=== PATIENT | female | born 1945 | race Caucasian/White ===

== ENCOUNTER 2019-04-11 12:48 | Inpatient (IN) | payer OTHER ==
[2019-04-11] MEDS: PIPER-TAZO 3.375 GM IV (PMX) 100 ML IVPB (14:11)
[2019-04-11] MEDS: VANCOMYCIN 1 GM (PMX) 250 ML IVPB (14:45)
[2019-04-11] MEDS ORDERED: ONDANSETRON 4 MG INJ IV ×2 (15:30→16:00)
[2019-04-11] MEDS ORDERED: ACETAMINOPHEN 325 MG TAB PO ×2 (15:30→16:00)
[2019-04-11] MEDS ORDERED: ACETAMINOPHEN 650 MG SUPP PR (16:00)
[2019-04-11] MEDS ORDERED: NACL 0.9% 3 ML SYG IV (16:00)
[2019-04-11] MEDS: SOD CHLORIDE 0.9% 1,000 ML IV (16:26)
[2019-04-11] MEDS ORDERED: GLUCOSE GEL 15 GRAM TUBE PO ×2 (16:30)
[2019-04-11] MEDS ORDERED: VANCOMYCIN IV PER PHARMACY XX (16:30)
[2019-04-11] MEDS ORDERED: GLUCAGON 1 MG INJ IM (16:30)
[2019-04-11] MEDS ORDERED: GLUCOSE GEL 15 GRAM TUBE BUCCAL (16:30)
[2019-04-11] MEDS ORDERED: DEXTROSE 50% 50 ML SYRINGE IV ×2 (16:30)
[2019-04-11] MEDS: INSULIN ASPART [NOVOLOG] 3 ML PEN SC ×3 (18:00→21:31)
[2019-04-11] MEDS: morphine 2 MG INJ IV (20:03)
[2019-04-11] MEDS: INSULIN GLARGINE [LANTus] (100 UNITS/ML) SYG SC (20:19)
[2019-04-11] MEDS: APIXABAN 5 MG TABLET PO (21:27)
[2019-04-12] MEDS: SOD CHLORIDE 0.9% 1,000 ML IV ×2 (00:29→11:43)
[2019-04-12] MEDS: ACCU-CHEK XX (02:00)
[2019-04-12] MEDS: morphine 2 MG INJ IV ×3 (05:24→20:52)
[2019-04-12] MEDS: INSULIN ASPART [NOVOLOG] 3 ML PEN SC ×7 (07:35→21:23)
[2019-04-12] MEDS: CLOPIDOGREL 75 MG TAB PO (09:00)
[2019-04-12] MEDS: FUROSEMIDE 20 MG TAB PO (09:00)
[2019-04-12] MEDS: METOPROLOL (XL) 25 MG TAB PO (09:00)
[2019-04-12] MEDS: DULOXETINE 30 MG CAP DR PO (09:00)
[2019-04-12] MEDS: FAMOTIDINE 20 MG TAB PO (09:00)
[2019-04-12] MEDS: APIXABAN 5 MG TABLET PO ×2 (09:00→20:52)
[2019-04-12] MEDS ORDERED: PENDING SANTYL ORDER FOR WOUND CARE XX (10:30)
[2019-04-12] MEDS: MAGNESIUM SULFATE 2 GM/50 ML 50 ML IVPB (12:46)
[2019-04-12] MEDS: CEFTRIAXONE 1 GM/50 ML (PMX) 50 ML IVPB (15:41)
[2019-04-12] MEDS: VANCOMYCIN 750 MG (PMX) 250 ML IVPB (16:03)
[2019-04-12] MEDS ORDERED: MIDAZOLAM 1 MG/ML 2 ML INJ (16:42)
[2019-04-12] MEDS: POLYMYXIN/BACITRACIN 1L IRRIG IRR (17:06)
[2019-04-12] MEDS ORDERED: LIDOCAINE 2% (SDV) 5 ML INJ (17:36)
[2019-04-12] MEDS ORDERED: ONDANSETRON 4 MG INJ (17:36)
[2019-04-12] MEDS ORDERED: ETOMIDATE 20 MG INJ (17:36)
[2019-04-12] MEDS ORDERED: DIPHENHYDRAMINE 50 MG INJ IV (18:00)
[2019-04-12] MEDS ORDERED: hydrALAzine 20 MG INJ IV (18:00)
[2019-04-12] MEDS ORDERED: FENTAnyl 50 MCG/ML VIAL IV (18:00)
[2019-04-12] MEDS ORDERED: MEPERIDINE 25 MG INJ IV (18:00)
[2019-04-12] MEDS ORDERED: METOCLOPRAMIDE 10 MG INJ IV (18:00)
[2019-04-12] MEDS ORDERED: ONDANSETRON 4 MG INJ IV (18:00)
[2019-04-12] MEDS ORDERED: HYDROmorphONE 1 MG/5 ML IV SYRINGE IV (18:00)
[2019-04-12] MEDS ORDERED: LABETALOL HCL 20MG INJ IV (18:00)
[2019-04-12] MEDS: HYDROmorphONE 1 MG/5 ML IV SYRINGE IV (18:40)
[2019-04-12] MEDS: INSULIN GLARGINE [LANTus] (100 UNITS/ML) SYG SC (20:11)
[2019-04-12] MEDS: HYDROCODONE/APAP (5/325) TAB PO (22:16)
[2019-04-13] MEDS: SOD CHLORIDE 0.9% 1,000 ML IV ×4 (01:36→18:37)
[2019-04-13] MEDS: ACCU-CHEK XX (01:55)
[2019-04-13] MEDS ORDERED: ACCU-CHEK XX (02:00)
[2019-04-13] MEDS: INSULIN ASPART [NOVOLOG] 3 ML PEN SC ×7 (08:17→21:10)
[2019-04-13] MEDS: DULOXETINE 30 MG CAP DR PO (08:18)
[2019-04-13] MEDS: APIXABAN 5 MG TABLET PO ×2 (08:18→21:08)
[2019-04-13] MEDS: CLOPIDOGREL 75 MG TAB PO (08:18)
[2019-04-13] MEDS: FAMOTIDINE 20 MG TAB PO (08:18)
[2019-04-13] MEDS: METOPROLOL (XL) 25 MG TAB PO (08:19)
[2019-04-13] MEDS: FUROSEMIDE 20 MG TAB PO (08:19)
[2019-04-13] MEDS: HYDROCODONE/APAP (5/325) TAB PO (11:19)
[2019-04-13] MEDS ORDERED: MAGNESIUM SULFATE 3 GM in DEXTROSE 5% 100 ML IVPB (13:00)
[2019-04-13] MEDS: MAGNESIUM SULFATE 3 GM in DEXTROSE 5% 100 ML IV (13:50)
[2019-04-13] MEDS: CEFTRIAXONE 1 GM/50 ML (PMX) 50 ML IVPB (16:41)
[2019-04-13] MEDS: VANCOMYCIN 750 MG (PMX) 250 ML IVPB (17:00)
[2019-04-13] MEDS: INSULIN GLARGINE [LANTus] (100 UNITS/ML) SYG SC (21:15)
[2019-04-14] MEDS: ACCU-CHEK XX (02:00)
[2019-04-14] MEDS: HYDROCODONE/APAP (5/325) TAB PO ×4 (02:44→23:20)
[2019-04-14] MEDS: SOD CHLORIDE 0.9% 1,000 ML IV (06:11)
[2019-04-14] MEDS: INSULIN ASPART [NOVOLOG] 3 ML PEN SC ×7 (08:23→20:23)
[2019-04-14] MEDS: APIXABAN 5 MG TABLET PO ×2 (08:25→20:29)
[2019-04-14] MEDS: DULOXETINE 30 MG CAP DR PO (08:25)
[2019-04-14] MEDS: FAMOTIDINE 20 MG TAB PO (08:25)
[2019-04-14] MEDS: CLOPIDOGREL 75 MG TAB PO (08:25)
[2019-04-14] MEDS: METOPROLOL (XL) 25 MG TAB PO (08:26)
[2019-04-14] MEDS: FUROSEMIDE 20 MG TAB PO (08:29)
[2019-04-14] MEDS: POTASSIUM CHLORIDE 100 ML IVPB ×2 (09:19→11:21)
[2019-04-14] MEDS ORDERED: GENTAMICIN IV PER PHARMACY XX (12:00)
[2019-04-14] MEDS: CLINDAMYCIN 600 MG/D5W (PMX) 50 ML IVPB ×3 (13:15→23:20)
[2019-04-14] MEDS: GENTAMICIN IVPB (15:09)
[2019-04-14] MEDS: SOD CHLORIDE 0.9% IVPB (15:09)
[2019-04-14] MEDS: INSULIN GLARGINE [LANTus] (100 UNITS/ML) SYG SC (20:30)
[2019-04-15] MEDS: ACCU-CHEK XX (02:00)
[2019-04-15] MEDS: PANTOPRAZOLE (EC) 40 MG TAB PO (05:17)
[2019-04-15] MEDS: CLINDAMYCIN 600 MG/D5W (PMX) 50 ML IVPB ×2 (05:17→12:16)
[2019-04-15] MEDS: AL HYDROX/MG HYDROX/SIMETH 30 ML CUP PO (05:17)
[2019-04-15] MEDS: APIXABAN 5 MG TABLET PO ×2 (08:12→20:34)
[2019-04-15] MEDS: MAGNESIUM SULFATE 3 GM in DEXTROSE 5% 100 ML IVPB (08:12)
[2019-04-15] MEDS: FAMOTIDINE 20 MG TAB PO (08:13)
[2019-04-15] MEDS: DULOXETINE 30 MG CAP DR PO (08:13)
[2019-04-15] MEDS: CLOPIDOGREL 75 MG TAB PO (08:13)
[2019-04-15] MEDS: FUROSEMIDE 20 MG TAB PO (08:13)
[2019-04-15] MEDS: METOPROLOL (XL) 25 MG TAB PO (08:13)
[2019-04-15] MEDS: INSULIN ASPART [NOVOLOG] 3 ML PEN SC ×7 (08:14→20:34)
[2019-04-15] MEDS: POTASSIUM CHLORIDE (SR) 20 MEQ TAB PO (11:14)
[2019-04-15] MEDS: HYDROCODONE/APAP (5/325) TAB PO (14:25)
[2019-04-15] MEDS: INSULIN GLARGINE [LANTus] (100 UNITS/ML) SYG SC (20:34)
[2019-04-16] MEDS: ACCU-CHEK XX (02:00)
[2019-04-16] MEDS: SOD CHLORIDE 0.9% IVPB (02:03)
[2019-04-16] MEDS: GENTAMICIN IVPB (02:03)
[2019-04-16] MEDS: PANTOPRAZOLE (EC) 40 MG TAB PO (05:44)
[2019-04-16] MEDS: INSULIN ASPART [NOVOLOG] 3 ML PEN SC ×7 (07:35→21:00)
[2019-04-16] MEDS: FUROSEMIDE 20 MG TAB PO (08:42)
[2019-04-16] MEDS: CLOPIDOGREL 75 MG TAB PO (08:42)
[2019-04-16] MEDS: HYDROCODONE/APAP (5/325) TAB PO ×2 (08:43→17:42)
[2019-04-16] MEDS: FAMOTIDINE 20 MG TAB PO (08:43)
[2019-04-16] MEDS: APIXABAN 5 MG TABLET PO ×2 (08:43→21:15)
[2019-04-16] MEDS: METOPROLOL (XL) 25 MG TAB PO (08:44)
[2019-04-16] MEDS: DULOXETINE 30 MG CAP DR PO (08:46)
[2019-04-16] MEDS: MAGNESIUM SULFATE 2 GM/50 ML 50 ML IVPB (11:56)
[2019-04-16] MEDS: morphine 2 MG INJ IV (14:08)
[2019-04-16] MEDS: LISINOPRIL 20 MG TAB PO (17:42)
[2019-04-16] MEDS: INSULIN GLARGINE [LANTus] (100 UNITS/ML) SYG SC (21:17)
[2019-04-17] MEDS: ACCU-CHEK XX (01:33)
[2019-04-17] MEDS: PANTOPRAZOLE (EC) 40 MG TAB PO (05:55)
[2019-04-17] MEDS: INSULIN ASPART [NOVOLOG] 3 ML PEN SC ×6 (08:00→17:52)
[2019-04-17] MEDS: FAMOTIDINE 20 MG TAB PO (08:05)
[2019-04-17] MEDS: HYDROCODONE/APAP (5/325) TAB PO ×2 (08:06→16:36)
[2019-04-17] MEDS: FUROSEMIDE 20 MG TAB PO (08:06)
[2019-04-17] MEDS: DULOXETINE 30 MG CAP DR PO (08:09)
[2019-04-17] MEDS: CLOPIDOGREL 75 MG TAB PO (08:09)
[2019-04-17] MEDS: LISINOPRIL 20 MG TAB PO (08:10)
[2019-04-17] MEDS: APIXABAN 5 MG TABLET PO (08:10)
[2019-04-17] MEDS: METOPROLOL (XL) 25 MG TAB PO (08:10)
[2019-04-17] MEDS: SOD CHLORIDE 0.9% IVPB (15:14)
[2019-04-17] MEDS: GENTAMICIN IVPB (15:14)
[2019-04-17] MEDS: MAGNESIUM OXIDE 400 MG TAB PO (17:51)
[2019-04-18] MEDS ORDERED: ASPIRIN (EC) 81 MG TAB PO (09:00)
== END 2019-04-17 19:37 | DRG 240 ==
LOC: E/R 12:48 → PP2 15:19
PROC: 0Y6M0Z9 Detachment at Right Foot, Partial 1st Ray, Open Approach (ICD-10-PCS; principal; 2019-04-12 11:00)
PROC: 0Y6M0ZB Detachment at Right Foot, Partial 2nd Ray, Open Approach (ICD-10-PCS; 2019-04-12 11:00)
PROC: 0Y6M0ZC Detachment at Right Foot, Partial 3rd Ray, Open Approach (ICD-10-PCS; 2019-04-12 11:00)
PROC: 0Y6M0ZD Detachment at Right Foot, Partial 4th Ray, Open Approach (ICD-10-PCS; 2019-04-12 11:00)
PROC: 0Y6M0ZF Detachment at Right Foot, Partial 5th Ray, Open Approach (ICD-10-PCS; 2019-04-12 11:00)
PROC: 0JBQ0ZZ Excision of Right Foot Subcutaneous Tissue and Fascia, Open Approach (ICD-10-PCS; 2019-04-12 11:00)
DX: E11.52 Type 2 diabetes mellitus with diabetic peripheral angiopathy with gangrene (principal); I70.261 Atherosclerosis of native arteries of extremities with gangrene, right leg; I50.40 Unspecified combined systolic (congestive) and diastolic (congestive) heart failure; R65.10 Systemic inflammatory response syndrome (SIRS) of non-infectious origin without acute organ dysfunction; E11.65 Type 2 diabetes mellitus with hyperglycemia; I11.0 Hypertensive heart disease with heart failure; E83.42 Hypomagnesemia; I34.0 Nonrheumatic mitral (valve) insufficiency; I07.1 Rheumatic tricuspid insufficiency; E11.621 Type 2 diabetes mellitus with foot ulcer
CPT/HCPCS: 36415; 73630; 80048; 80053; 80061; 80170; 82962; 83036; 83735; 84100; 84436; 84443; 84479; 85025; 85610; 85651; 86140; 87040-91; 87070; 87075; 87081; 87102; 87116; 88305; 88311; 93005; 93306; 96365; 97110; 97162; 97530; 99285-25